=== PATIENT | male | born 1990 | race African-American/Black ===

== ENCOUNTER 2023-12-30 01:00 | Emergency (ER) | payer MEDICAID ==
[~2023-12-30] VITALS: Ht 190.5 cm; Wt 80.0 kg
[2023-12-30 01:26] VITALS: TEMP 98.6; O2SAT 97
[2023-12-30] MEDS: CEFAZOLIN 1000MG PREMIX 50 ML IV ONE (02:00)
[2023-12-30] MEDS: SODIUM CHLORIDE 0.9% 1,000 ML IV ONE ×2 (02:07→02:56)
[2023-12-30] MEDS: KETOROLAC 30MG/ML VIAL IV STA (02:11)
[2023-12-30] MEDS: ONDANSETRON HCL 4MG/2ML INJ IV STA (02:11)
[2023-12-30 02:31] LABS: BASOPHILS % 0.8 % (0.0-2.0); EOSINOPHILS % 1.6 % (0.0-5.0); HEMATOCRIT. 40.5 % (42.0-52.0); MEAN CORPUSCULAR HEMOGLOBIN 25.9 pg (28.0-32.0); MEAN PLATELET VOLUME 8.4 fl (7.4-10.4); MONOCYTES % 8.5 % (2.0-8.0); NEUTROPHILS % 69.1 % (40.0-76.0); PLATELET 220 x1000/uL (130-400); RED CELL DISTRIBUTION WIDTH 15.9 % (11.6-14.6); WHITE BLOOD COUNT 9.8 x1000/uL (4.5-11.0)
[2023-12-30 02:32] LABS: CHLORIDE 108 mEq/L (98-107); POTASSIUM 3.6 mEq/L (3.5-5.1); SODIUM 140 mEq/L (136-145)
[2023-12-30 02:33] LABS: CALCIUM 9.2 mg/dL (8.7-10.4); CARBON DIOXIDE 25 mEq/L (21-32)
[2023-12-30 02:38] LABS: CREATININE 1.2 mg/dL (0.6-1.3); GLUCOSE 86 mg/dL (70-105); UREA NITROGEN BLOOD 14 mg/dL (9-23)
[2023-12-30] MEDS: TETANUS, DIPHTHERIA, PERTUSSIS VAC/PF 0.5ML (>10YR OLD) IM ONE (02:56)
[2023-12-30] MEDS: IOHEXOL-300 100 ML BOTTLE ONE (04:06)
[2023-12-30] MEDS ORDERED: LIDOCAINE HCL/PF 1% 10 MG/ML 5ML VIAL INFIL ONE (05:00)
[2023-12-30] MEDS ORDERED: BACITRACIN ZINC OINT UDPKT TOP ONE (05:00)
[2023-12-30] MEDS ORDERED: IBUP-2029 MT (05:11)
[2023-12-30] MEDS ORDERED: CEPH500C2 MT (05:11)
[2023-12-30] MEDS: BACITRACIN ZINC OINT UDPKT TOP NR (07:35)
[2023-12-30] MEDS: LIDOCAINE HCL/PF 1% 10 MG/ML 5ML VIAL INFIL NR (07:35)
[2023-12-30 07:45] VITALS: BP 150/84; PULSE 60; RESP 18; O2SAT 97
[2023-12-30] MEDS: KETOROLAC 30MG/ML VIAL IV NR (08:13)
== END 2023-12-30 08:34 | disposition home or self-care (01) ==
LOC: ER 02:10
DX: S01.311A Laceration without foreign body of right ear, initial encounter (principal); V98.8XXA Other specified transport accidents, initial encounter; Y93.89 Activity, other specified; Y92.89 Other specified places as the place of occurrence of the external cause; Y99.8 Other external cause status
CPT/HCPCS: 80048; 85025; 36415; 71045; 70450; 71260; 72125; 74177; 90715; 12013; 90471; 96365; 96375; 99285; Q9967; J0690; J1885; J3490; J2405; J7030; Z7610 ×3